=== PATIENT | female | born 1975 | race Caucasian/White ===

== ENCOUNTER 2020-01-06 16:13 | Emergency (ER) | payer BC ==
[~2020-01-06] VITALS: Ht 162.6 cm; Wt 73.5 kg
[2020-01-06] MEDS ORDERED: XANAX 0.5 MG0.5 M1 PO (17:14)
[2020-01-06] MEDS ORDERED: LEXAPRO 10 MG T10 MG PO (17:14)
[2020-01-06] MEDS ORDERED: SPIRONOLACTONE25 MG PO (17:15)
[2020-01-06] MEDS ORDERED: AMITRIPTYLINE H25 M4 PO (17:15)
[2020-01-06] MEDS ORDERED: PROMETH-CODEIN 65 ML PO (17:59)
[2020-01-06] MEDS ORDERED: PROAIR HFA8.5 GM INH (18:02)
[2020-01-06 18:57] LABS: BASOPHILS 0.3 % (0.0-2.0); EOSINOPHILS 0.4 % (0.0-3.0); HEMATOCRIT 42.1 % (37.0-47.0); HEMOGLOBIN 14.2 gm/dL (12.0-15.0); LYMPHOCYTES 17.8 % (24.0-44.0); MCH 32.9 pg (26.0-34.0); MCHC 33.8 g/dL (28.0-37.0); MCV 97.5 fL (80.0-100.0); MONOCYTES 5.8 % (1.0-8.0); PLATELET COUNT 187 thou/uL (150-400); POLYS 75.7 % (36.0-66.0); RBC 4.32 mil/uL (4.20-5.00); RDW 12.4 % (10.5-14.5); WBC 6.7 thou/uL (4.0-11.0)
[2020-01-06 19:43] LABS: CALCIUM 9.8 mg/dL (8.5-10.1); CREATININE 1.1 mg/dL (0.6-1.0); POTASSIUM 3.7 mmol/L (3.5-5.1)
[2020-01-06 19:48] LABS: ALBUMIN 4.1 g/dL (3.4-5.0); TOTAL BILIRUBIN 0.7 mg/dL (<0.1-1.0); TOTAL PROTEIN 7.8 g/dL (6.4-8.2)
[2020-01-06 20:10] VITALS: BP 123/74
== END 2020-01-06 19:32 | disposition home or self-care (01) ==
LOC: ER 16:13
PROVIDERS: Physician Assistant
DX: J06.9 Acute upper respiratory infection, unspecified (principal); M79.10 Myalgia, unspecified site; R00.0 Tachycardia, unspecified; Z79.899 Other long term (current) drug therapy; Z88.8 Allergy status to other drugs, medicaments and biological substances

== ENCOUNTER 2020-01-21 13:15 | Emergency (ER) | payer BC ==
[~2020-01-21] VITALS: Ht 162.6 cm; Wt 74.8 kg
[~2020-01-21 13:15] MED LIST: AMITRIPTYLINE H25 M4 PO; LEXAPRO 10 MG T10 MG PO; PROAIR HFA8.5 GM INH; PROMETH-CODEIN 65 ML PO; SPIRONOLACTONE25 MG PO; XANAX 0.5 MG0.5 M1 PO
[2020-01-21] MEDS ORDERED: ZPAK PO (14:18)
[2020-01-21] MEDS ORDERED: GUAIFEN-CODEINE10 ML PO (14:18)
[2020-01-21 14:32] VITALS: BP 115/71
--- NOTE | 2020-01-22 09:34 | EKG ---
[facility] [place] [address] ELECTROCARDIOGRAM REPORT Name: MALI MENDEZ Room #: DEP [facility]#: [id number] Admission: 01/21/20 Attend Phys: Discharge: 01/21/20 Date of : 77 Report #: [id number] THIS REPORT FOR: cc: FAM - Family physician unknown FAM - Family physician unknown Wilmer Guidry MD [facility] ~ THIS REPORT FOR: //name// [facility] ED Test Date: 2020-01-21 Test Time: 13:50:24 Pat Name: MALI MENDEZ Department: Room: Gender: F Emt I/85: : 1975 Requested By: Mali Franklin Order Number: [id number] MD: Wilmer Guidry Measurements Intervals [place] Rate: 94 P: 32 MI: 146 QRS: -11 QRSD: 92 T: 7 QT: 356 QTc: 446 Interpretive Statements Sinus rhythm Low voltage Borderline T abnormalities, anterior leads No previous ECG available for comparison Electronically Signed On 01-22-2020 9:33:12 CDT by Wilmer Guidry [email or web address] <ELECTRONICALLY SIGNED> By: Wilmer Guidry MD, [facility] 01/22/20 0933 1350 1350 Wilmer Guidry MD, FACC /EPI
== END 2020-01-21 14:32 | disposition home or self-care (01) ==
LOC: ER 13:15
DX: J06.9 Acute upper respiratory infection, unspecified (principal); Z79.899 Other long term (current) drug therapy